=== PATIENT | female | born 1975 | race Two or more races ===

== ENCOUNTER 2019-08-29 21:35 | Emergency (ER) | payer OTHER ==
[~2019-08-29] VITALS: Ht 162.6 cm; Wt 90.7 kg
[2019-08-29] MEDS ORDERED: ONDANSETRON ODT 4 MG TAB PO ONE ×2 (22:27→22:30)
[2019-08-29] MEDS ORDERED: IBUPROFEN 600 MG TAB PO ONE ×2 (22:27→22:30)
[2019-08-29 22:42] LABS: Basophils # (auto) 0.1 uL; Eosinophils # (auto) 0.2 uL; Hemoglobin 11.5 g/dL (12.2-16.2); Lymphocytes # (auto) 2.4 uL; Monocytes # (auto) 0.8 uL; Monocytes % (auto) 9.9 % (0.0-12.0); White Blood Cell 8.4 10^3/uL (4.4-10.8)
[2019-08-29 22:44] LABS: Basophils % (auto) 0.7 % (0.0-2.0); Eosinophils % (auto) 2.5 % (0.0-7.0); Hematocrit 34.8 % (36.0-46.0); Lymphocytes % (auto) 28.8 % (10.0-50.0); Mean Corpuscular Hemoglobin 25.4 pg (28.0-32.0); Neutrophils # (auto) 4.9 uL; Neutrophils % (auto) 58.1 % (37.0-80.0); Nucleated Red Blood Cells % 0.1 %; Platelet Count (auto) 236 10^3/uL (140-450); Red Blood Cells 4.52 10^6/uL (4.0-5.20); Red Cell Distribution Width 14.7 % (11.8-14.3)
[2019-08-29 23:03] LABS: Calcium 8.4 mg/dL (8.5-10.1); Potassium 3.3 mmol/L (3.5-5.1)
[2019-08-29 23:07] LABS: BUN/Creatinine Ratio 12.9; Bilirubin, Total 0.2 mg/dL (0.2-1.0); Total Protein 7.5 g/dL (6.4-8.2)
[2019-08-29 23:13] LABS: Urine Bacteria NONE SEEN /hpf (None Seen); Urine Blood Negative /uL (Negative); Urine Specific Gravity 1.007 (1.001-1.035); Urine WBC 2 /hpf (0 - 5)
[2019-08-30 02:17] VITALS: BP 120/76
[2019-08-30] MEDS ORDERED: HYDROcodone-ACET 5/325MG TAB PO ONE (02:30)
== END 2019-08-30 02:18 | disposition home or self-care (01) ==
LOC: ER 21:38
DX: S86.812A Strain of other muscle(s) and tendon(s) at lower leg level, left leg, initial encounter (principal); F41.9 Anxiety disorder, unspecified; Z90.49 Acquired absence of other specified parts of digestive tract; Z98.890 Other specified postprocedural states; X58.XXXA Exposure to other specified factors, initial encounter; Y93.89 Activity, other specified; Y92.89 Other specified places as the place of occurrence of the external cause; Y99.8 Other external cause status
CPT/HCPCS: 36415; 70450; 73562; 80053; 81001; 82962; 85025; 93005; 99284; Q0162

== ENCOUNTER 2021-04-11 11:46 | Emergency (ER) | payer OTHER ==
[~2021-04-11] VITALS: Ht 162.6 cm; Wt 81.6 kg
[2021-04-11 12:48] VITALS: BP 138/81
[2021-04-11] MEDS ORDERED: LORazepam 0.5 MG TAB PO ONE (13:00)
[2021-04-11] MEDS ORDERED: ONDANSETRON ODT 4 MG TAB PO ONE (14:00)
== END 2021-04-11 14:32 | disposition home or self-care (01) ==
LOC: ER 11:46
DX: R51.9 Headache, unspecified (principal); F41.9 Anxiety disorder, unspecified; Z90.49 Acquired absence of other specified parts of digestive tract; Z98.890 Other specified postprocedural states
CPT/HCPCS: 70450; 99284; Q0162